=== PATIENT | male | born 1995 | race Caucasian/White ===

== ENCOUNTER 2017-10-21 20:27 | Emergency (ER) | payer BC ==
[~2017-10-21] VITALS: Ht 172.7 cm; Wt 70.9 kg
[2017-10-21 20:29] VITALS: TEMP 36.6; Ht 172.7 cm; Wt 70.9 kg
[2017-10-21 21:24] LABS: PTT PATIENT 25.7 SECONDS (21.0-31.0)
[2017-10-21 21:40] LABS: ALBUMIN 4.2 gm/dl (3.4-5.0); ALT/SGPT 47 U/L (12-78); BLOOD UREA NITROGEN 22 mg/dl (7-18); CARBON DIOXIDE 27 mmol/L (21-32); CREATININE 1.06 mg/dl (0.60-1.40); GLUCOSE 136 mg/dl (70-99); POTASSIUM 3.7 mmol/L (3.5-5.1); SODIUM 137 mmol/L (136-145)
[2017-10-21 21:42] LABS: ALKALINE PHOSPHATASE 115 U/L (45-117); AST/SGOT 26 U/L (15-37); TOTAL PROTEIN 7.4 gm/dl (6.4-8.2)
[2017-10-21 21:52] LABS: BASO % 0.7 %; BASO ABS # 0.04 K/uL (0-0.2); EOS % 3.4 %; HEMATOCRIT 42.1 % (42-52); HEMOGLOBIN 15.2 g/dL (14.0-18.0); IG# 0.01 K/uL (0.00-0.02); LYMPH % 23.9 %; MEAN CELL VOLUME 87.9 fL (80-100); MEAN CORPUSCULAR HEMOGLOBIN 31.7 pg (25-34); MEAN CORPUSCULAR HGB CONC 36.1 g/dl (32-36); MEAN PLATELET VOLUME 9.8 fL (7.4-10.4); MONO % 11.8 %; MONO ABS # 0.69 K/uL (0.11-0.59); NEUT ABS # 3.53 K/uL (1.4-6.5); PLATELET COUNT 225 K/uL (130-400); RED CELL DISTRIBUTION WIDTH CV 12.5 % (11.5-14.5); WHITE BLOOD COUNT 5.87 K/uL (4.8-10.8)
--- NOTE | 2017-10-21 21:52 | DIAGNOSTIC IMAGING REPORT ---
ULTRASOUND SOFT TISSUES ABDOMINAL WALL CLINICAL HISTORY: Erythema of the right flank. COMPARISON STUDY: No priors. FINDINGS: Real-time, grayscale, and color flow sonography of the soft tissues of the right flank is performed at the indicated site of interest. There is edema of the subcutaneous soft tissues at this site with minimal hyperemia on color imaging. A 2 mm hypoechoic focus is seen at the dermal surface and likely represents a tiny wound. There is no organized fluid collection identified to suggest abscess. IMPRESSION: 1. Subcutaneous soft tissue edema is seen at the site of interest and likely represents cellulitis. 2. A 2 mm hypoechoic focus is seen at the dermal surface, possibly representing a tiny wound. 3. There is no convincing evidence of abscess. Electronically signed by: Kaveh Mercado M.D. 10/21/2017 9:51 PM Dictated Date/Time: 10/21/2017 9:49 PM
[2017-10-21] MEDS ORDERED: SEPTRA DS HOME PACK 1 EA VIAL PO STA (22:29)
[2017-10-21] MEDS ORDERED: CEPHALEXIN 500MG HOME PACK 1 EA BTL PO STA (22:29)
--- NOTE | 2017-10-21 22:31 | EMERGENCY ROOM VISIT NOTE ---
History First contact with patient: 20:34 Chief Complaint: RASH Stated Complaint: RASH ON SIDE History of Present Illness The patient is a 22 year old male who presents to the Emergency Room via private vehicle with complaints of "rash on right side". The patient states that he was bit on the right flank by a tick before Thanksgiving time this past year. He states that it was removed, and was evaluated and placed up on doxycycline for 21 days. He states that he went back because it did not quite heal. He notes that he then had a small piece of the retained tick removed. He states that after this was performed about 3 weeks ago he notes a red ring around the region. He feels as though it is not completely healed. He believes his tetanus is up-to-date. Review of Systems A complete 6-point Review of Systems was discussed with the patient, with pertinent positives and negatives listed in the History of Present Illness. All remaining Review of Systems questions can be considered negative unless otherwise specified. Social History Smoking Status: Never Smoker Current/Historical Medications Scheduled Cephalexin Monohydrate (Keflex), 500 MG PO QID Sulfa/Trimethoprim (Bactrim Ds 800MG/160MG), 1 TAB PO BID Physical Exam Vital Signs Date Time Temp Pulse Resp B/P (MAP) Pulse Ox O2 Delivery O2 Flow Rate FiO2 10/21/17 22:40 69 16 104/68 99 10/21/17 20:29 36.6 72 16 140/80 98 Room Air Physical Exam VITAL SIGNS - Vital signs and nursing notes were reviewed. Stable. GENERAL -22-year-old male appearing his stated age who is in no acute distress. Communicates well with provider and answers questions appropriately. SKIN -overlying the patient's right flank there is an 8 cm x 4 cm oval erythematous region with a central slightly raised region with a small ulceration. No drainage. No fluctuance. Minimal tenderness. Medical Decision & Procedures ER Provider Diagnostic Interpretation: ULTRASOUND SOFT TISSUES ABDOMINAL WALL CLINICAL HISTORY: Erythema of the right flank. COMPARISON STUDY: No priors. FINDINGS: Real-time, grayscale, and color flow sonography of the soft tissues of the right flank is performed at the indicated site of interest. There is edema of the subcutaneous soft tissues at this site with minimal hyperemia on color imaging. A 2 mm hypoechoic focus is seen at the dermal surface and likely represents a tiny wound. There is no organized fluid collection identified to suggest abscess. IMPRESSION: 1. Subcutaneous soft tissue edema is seen at the site of interest and likely represents cellulitis. 2. A 2 mm hypoechoic focus is seen at the dermal surface, possibly representing a tiny wound. 3. There is no convincing evidence of abscess. Electronically signed by: Kaveh Mercado M.D. 10/21/2017 9:51 PM Dictated Date/Time: 10/21/2017 9:49 PM Laboratory Results 10/21/17 21:00 Red Blood Count 4.79, Mean Corpuscular Volume 87.9, Mean Corpuscular Hemoglobin 31.7, Mean Corpuscular Hemoglobin Concent 36.1, Mean Platelet Volume 9.8, Neutrophils (%) (Auto) 60.0, Lymphocytes (%) (Auto) 23.9, Monocytes (%) (Auto) 11.8, Eosinophils (%) (Auto) 3.4, Basophils (%) (Auto) 0.7, Neutrophils # (Auto ) 3.53, Lymphocytes # (Auto) 1.40, Monocytes # (Auto) 0.69, Eosinophils # (Auto ) 0.20, Basophils # (Auto) 0.04 10/21/17 21:00 Test 10/21/17 21:00 White Blood Count 5.87 K/uL (4.8-10.8) Red Blood Count 4.79 M/uL (4.7-6.1) Hemoglobin 15.2 g/dL (14.0-18.0) Hematocrit 42.1 % (42-52) Mean Corpuscular Volume 87.9 fL (80-100) Mean Corpuscular Hemoglobin 31.7 pg (25-34) Mean Corpuscular Hemoglobin Concent 36.1 g/dl (32-36) Platelet Count 225 K/uL (130-400) Mean Platelet Volume 9.8 fL (7.4-10.4) Neutrophils (%) (Auto) 60.0 % Lymphocytes (%) (Auto) 23.9 % Monocytes (%) (Auto) 11.8 % Eosinophils (%) (Auto) 3.4 % Basophils (%) (Auto) 0.7 % Neutrophils # (Auto) 3.53 K/uL (1.4-6.5) Lymphocytes # (Auto) 1.40 K/uL (1.2-3.4) Monocytes # (Auto) 0.69 K/uL (0.11-0.59) Eosinophils # (Auto) 0.20 K/uL (0-0.5) Basophils # (Auto) 0.04 K/uL (0-0.2) RDW Standard Deviation 40.0 fL (36.4-46.3) RDW Coefficient of Variation 12.5 % (11.5-14.5) Immature Granulocyte % (Auto) 0.2 % Immature Granulocyte # (Auto) 0.01 K/uL (0.00-0.02) Erythrocyte Sedimentation Rate 2 mm/hr (0-14) Prothrombin Time 10.4 SECONDS (9.0-12.0) Prothromb Time International Ratio 1.0 (0.9-1.1) Activated Partial Thromboplast Time 25.7 SECONDS (21.0-31.0) Partial Thromboplastin Ratio 1.0 Anion Gap 4.0 mmol/L (3-11) Est Creatinine Clear Calc Drug Dose 105.7 ml/min Estimated GFR () 114.9 Estimated GFR (Non- 99.1 BUN/Creatinine Ratio 21.1 (10-20) Calcium Level 9.0 mg/dl (8.5-10.1) Total Bilirubin 0.6 mg/dl (0.2-1) Aspartate Amino Transf (AST/SGOT) 26 U/L (15-37) Alanine Aminotransferase (ALT/SGPT) 47 U/L (12-78) Alkaline Phosphatase 115 U/L (45-117) C-Reactive Protein < 0.29 mg/dl (0-0.29) Total Protein 7.4 gm/dl (6.4-8.2) Albumin 4.2 gm/dl (3.4-5.0) Globulin 3.2 gm/dl (2.5-4.0) Albumin/Globulin Ratio 1.3 (0.9-2) Lyme Disease IgG Antibody NEG (NEG) Lyme Disease IgM Antibody NEG (NEG) Medications Administered Medications (Trade) Dose Ordered Sig/Cleve Route Start Time Stop Time Status Last Admin Dose Admin Cephalexin Monohydrate (Keflex 500MG Home Pack) 1 homepack NOW STAT PO 10/21/17 22:29 10/21/17 22:30 DC 10/21/17 22:29 1 HOMEPACK Trimethoprim/ Sulfamethoxazole (Sulfameth/ Trimeth Ds 800/ 160MG Home Pack) 1 homepa UD STAT PO 10/21/17 22:29 10/21/17 22:30 DC 10/21/17 22:29 1 [facility] Medical Decision Patient was seen and evaluated as above. He presents to us today with right- sided erythema were a tick was removed months ago. After obtaining a thorough history and physical examination the above work up was performed. I did like to establish IV access secondary to the patient's presentation. He is nontoxic on exam. The small area on the right flank is likely that of cellulitic nature. I did however elect to test for Lyme disease which was negative. I did inform him however the test could be negative in the event that it is still early in the process. CBC reveals no concerning leukocytosis or anemia. Coags normal. Metabolic panel reveals likely what is dehydration with BUN 22. Glucose at 136. He was also treated with 21 days of doxycycline recently. I favor this likely to be a skin/skin colby ideology and will treat with Bactrim and Keflex. Ultrasound does not reveal abscess. This was obtained secondary to his continued/progressive unhealed wound. He notes he does not have a family doctor in the area therefore I did enlist the help of our case packer and sealer to provide him a list of contact information and he feels comfortable establishing a family doctor. I informed him that if this does not improve he may need to be referred to a still cleaner. He is to return with worsening. The patient was educated upon management, had questions answered prior to discharge, and was discharged home in good condition. Case was discussed with the attending physician In the evaluation and treatment of this patient the following differential diagnoses were entertained: Cellulitis, abscess, Lyme disease, among others. Impression Primary Impression: Cellulitis Departure Information Dispostion Home / Self-Care Condition GOOD Prescriptions Sulfa/Trimethoprim (Bactrim Ds 800MG/160MG) Tab 1 TAB PO BID for 9 Days, #18 TAB Prov: Escobar Fortune PA-C 10/21/17 Cephalexin Monohydrate (Keflex) 500 Mg Cap 500 MG PO QID for 9 Days, #36 CAP Prov: Escobar Fortune PA-C 10/21/17 Referrals No Doctor, Assigned (PCP) Patient Instructions My [facility] Additional Instructions You were seen in the emergency department for a skin infection on your right side. At this time I recommend initiating to antibiotics. The first is Keflex, 500 mg every 6 hours for 10 days. The second is Bactrim, 1 tablet every 12 hours for 10 days. Please continue to watch the size of the wound. If it enlarges, you develop fevers or chills please return. I do recommend following up with the family doctor that we will help establish for follow-up and may be even potential referral to dermatology if this persists. Please return with any new/concerning symptoms.
[2017-10-21] MEDS ORDERED: SULF800T23 PO (22:33)
[2017-10-21] MEDS ORDERED: CEPH500C PO (22:33)
[2017-10-21 22:40] VITALS: BP 104/68; PULSE 69; O2SAT 99
== END 2017-10-21 22:41 | disposition home or self-care (01) ==
LOC: C.EDB 20:29 → C.EDD 22:41
DX: L03.311 Cellulitis of abdominal wall (principal)